=== PATIENT | male | born 1965 | race Caucasian/White ===

== ENCOUNTER 2016-12-24 12:22 | Emergency (ER) | payer BC ==
[2016-12-24 12:26] VITALS: BP 128/70; PULSE 74; RESP 18; TEMP 97.6
[2016-12-24] MEDS ORDERED: PROPARACAINE 0.5% OPHTH DROPS 15 ML BTL LEFT EYE STA (12:41)
[2016-12-24] MEDS ORDERED: TOBRAMYCIN 0.3% OPHTH DROPS 5 ML BTL LEFT EYE STA (12:57)
[2016-12-24] MEDS ORDERED: TOBRAMYCIN 0.3% OPHTH DROPS 5 ML BTL RIGHT EYE STA (12:57)
--- NOTE | 2016-12-24 12:59 | ED ---
Eye Problem HPI - General Chief complaint: Eye Problems Stated complaint: FB in Eye-Sent by Five minutes Time Seen by Provider: 12/24/16 12:40 Source: patient, RN notes reviewed Mode of arrival: ambulatory Limitations: no limitations - History of Present Illness Initial comments: 51-year-old male presents emergency department tingling foreign-body left eye. 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 Patient states her symptoms resolved though he still felt that there was a foreign body. Patient's tetanus is up-to-date 4 years ago. Patient denies any blurred vision he states he does have some sensitivity. - Related Data Home Medications Medication Instructions Recorded Confirmed Aspirin 81 mg PO DAILY 09/16/13 12/24/16 Atorvastatin [Lipitor] 80 mg PO HS 09/16/13 12/24/16 Lisinopril [Zestril] 5 mg PO DAILY 09/16/13 12/24/16 Metoprolol Tartrate [Lopressor] 25 mg PO BID 09/16/13 12/24/16 Nitroglycerin Sl Tabs [Nitrostat] 0.4 mg SL Q5M PRN 09/16/13 12/24/16 Omeprazole 20 mg PO BID 12/24/16 12/24/16 Previous Rx's Medication Instructions Recorded Tobramycin 0.3% Ophth Oint [Tobrex 1 applic LEFT EYE TID #3.5 gm 12/24/16 0.3% Ophth Oint] Allergies Allergy/AdvReac Type Severity Reaction Status Date / Time codeine AdvReac anxious Verified 12/24/16 12:39 Review of Systems ROS Statement: Those systems with pertinent positive or pertinent negative responses have been documented in the HPI. ROS Other: All systems not noted in ROS Statement are negative. Past Medical History Past Medical History: Chest Pain / Angina, Fibromyalgia, GERD/Reflux, Hyperlipidemia, Hypertension, Myocardial Infarction ([place]), Osteoarthritis (OA), Sleep Apnea/CPAP/BIPAP Additional Past Medical History / Comment(s): SOB w/activity Last Myocardial Infarction Date:: august 2013 History of Any Multi-Drug Resistant Organisms: None Reported Past Surgical History: Heart Catheterization With Stent Additional Past Surgical History / Comment(s): heart stent x5 Past Anesthesia/Blood Transfusion Reactions: No Reported Reaction Date of Last Stent Placement:: Jan 2013 Past Psychological History: No Psychological Hx Reported Smoking Status: Current some day smoker Past Alcohol Use History: Daily Past Drug Use History: None Reported - Past Family History Mother Family Medical History: No Reported History General Exam Limitations: no limitations General appearance: alert, in no apparent distress Head exam: Present: atraumatic, normocephalic, normal inspection Eye exam: Present: PERRL, EOMI, other (Foreign body noted to the left eyes central region 2 drops of proparacaine were used to anesthetize the eye sterile Q-tip was used to remove the foreign body dye and foster lamp was used to evaluate that I will shows a defect where the foreign-body was. There is no rust ring). Absent: normal appearance, scleral icterus, conjunctival injection , periorbital swelling ENT exam: Present: normal exam, normal oropharynx, mucous membranes moist, TM's normal bilaterally, normal external ear exam Neck exam: Present: normal inspection, full ROM. Absent: tenderness, meningismus, lymphadenopathy Respiratory exam: Present: normal lung sounds bilaterally. Absent: respiratory distress, wheezes, rales, rhonchi, stridor Cardiovascular Exam: Present: regular rate, normal rhythm, normal heart sounds. Absent: systolic murmur, diastolic murmur, rubs, gallop, clicks Course Vital Signs 12/24/16 12:23 Temperature 97.6 F Pulse Rate 74 Respiratory 18 Rate Blood Pressure 128/70 O2 Sat by Pulse 99 Oximetry Medical Decision Making - Medical Decision Making 51-year-old male present emergency from for foreign body left eye this was removed with no comp patients. Patient will be followed up with ophthalmology patient was started on Tobrex eyedrops return parameters were discussed. Disposition Clinical Impression: FB eye Disposition: HOME SELF-CARE Condition: Stable Instructions: Eye Foreign Body (ED) Additional Instructions: Please return to the Emergency Department if symptoms worsen or any other concerns. Prescriptions: Tobramycin 0.3% Ophth Oint [Tobrex 0.3% Ophth Oint] 1 applic LEFT EYE TID #3.5 gm Referrals: Cristobal Corona DO [Primary Care Provider] - 1-2 days Clement Krause MD [STAFF PHYSICIAN] - 1-2 days Time of Disposition: 12:59
--- NOTE | 2016-12-26 06:33 | CDI ---
Documentation Clarification OP Dear Mor Coelho PA-C Please do addendum to ED report that provides Need EYE Foreign Body Removal Location. Thank you, Trudi Fang Couture Dressmaker If you have any questions, please contact Desktop Support Engineer at [phone] [facility]
== END 2016-12-24 13:22 | disposition home or self-care (01) ==
LOC: EC 12:22
DX: T15.92XA Foreign body on external eye, part unspecified, left eye, initial encounter (principal); I10 Essential (primary) hypertension; I25.2 Old myocardial infarction; E78.5 Hyperlipidemia, unspecified; F17.200 Nicotine dependence, unspecified, uncomplicated; Z95.5 Presence of coronary angioplasty implant and graft; Z88.5 Allergy status to narcotic agent; Z79.82 Long term (current) use of aspirin; Z79.899 Other long term (current) drug therapy; W20.8XXA Other cause of strike by thrown, projected or falling object, initial encounter
CPT/HCPCS: 65205; 99283

== ENCOUNTER 2019-04-02 17:48 | Inpatient (IN) | payer BC ==
[2019-04-02] MEDS ORDERED: HEPARIN SODIUM,PORCINE 5,000 UNIT/ML 1 ML VIAL IV STA (17:55)
[2019-04-02] MEDS ORDERED: ATORVASTATIN 80 MG TAB PO STA (17:55)
[2019-04-02] MEDS ORDERED: IV FLUID CONTINUATION 950 ML IV ONE (18:02)
[2019-04-02 18:06] LABS: HCT 48.2 % (39.0-53.0); HGB 16.1 gm/dL (13.0-17.5); MCH 31.7 pg (25.0-35.0); MCHC 33.5 g/dL (31.0-37.0); MCV 94.8 fL (80.0-100.0); Mean Platelet Volume 6.8; Platelet Count 305 k/uL (150-450); RBC 5.08 m/uL (4.30-5.90); RDW 12.6 % (11.5-15.5); WBC 9.1 k/uL (3.8-10.6)
[2019-04-02] MEDS ORDERED: MIDAZOLAM 2 MG/2 ML VIAL IV ONE ×2 (18:10→18:40)
[2019-04-02] MEDS ORDERED: LIDOCAINE 1% INJ 10MG/ML (20 ML MDV) SQ ONE ×2 (18:11→18:12)
[2019-04-02 18:15] LABS: ALT 42 U/L (4-49); AST 45 U/L (17-59); African American GFR (CKD) >90 (>60 ml/min/1.73 sqM); Albumin 5.1 g/dL (3.5-5.0); Alkaline Phosphatase 113 U/L (38-126); Anion Gap 10 mmol/L; Blood Urea Nitrogen 13 mg/dL (9-20); Calcium 10.2 mg/dL (8.4-10.2); Carbon Dioxide 24 mmol/L (22-30); Chloride 103 mmol/L (98-107); Glucose 114 mg/dL (74-99); INR 0.9 (<1.2); Non-African American GFR(CKD) >90 (>60 ml/min/1.73 sqM); Partial Thromboplastin Time 24.4 sec (22.0-30.0); Potassium 4.5 mmol/L (3.5-5.1); Prothrombin Time 9.6 sec (9.0-12.0); Sodium 137 mmol/L (137-145); Total Bilirubin 0.5 mg/dL (0.2-1.3); Total Protein 8.4 g/dL (6.3-8.2)
[2019-04-02] MEDS ORDERED: VERAPAMIL SYRINGE (5 MG/10 ML) INTRAARTER ONE (18:15)
--- NOTE | 2019-04-02 18:15 | ED ---
Chest Pain HPI - General Chief Complaint: Chest Pain Stated Complaint: STEMI Time Seen by Provider: 04/02/19 17:48 Source: patient, EMS, RN notes reviewed, old records reviewed Mode of arrival: EMS Limitations: no limitations - History of Present Illness Initial Comments: This is a 53-year-old male with a history of heart disease previous cardiac cath and stents and who is still a smoker who presents by EMS with complaints of sternal chest pain that was about 6 or 7/10 in severity this started around 2 PM today. It persisted and the patient called EMS when his pain did not get better with antacids. He does state he's been having heartburn like pain for the past week off. He denies any nausea vomiting fevers chills sweats shortness of breath or other symptoms with the pain. Per paramedics he did appear to have an ST elevation in the inferior leads. He did maintain his pressure. He was given 325 mg of aspirin in route to. He denies any other complaints at this time MD Complaint: chest pain - Related Data Home Medications Medication Instructions Recorded Confirmed Aspirin 81 mg PO DAILY 09/16/13 12/24/16 Atorvastatin [Lipitor] 80 mg PO HS 09/16/13 12/24/16 Lisinopril [Zestril] 5 mg PO DAILY 09/16/13 12/24/16 Metoprolol Tartrate [Lopressor] 25 mg PO BID 09/16/13 12/24/16 Nitroglycerin Sl Tabs [Nitrostat] 0.4 mg SL Q5M PRN 09/16/13 12/24/16 Omeprazole 20 mg PO BID 12/24/16 12/24/16 Previous Rx's Medication Instructions Recorded Tobramycin 0.3% Ophth Oint [Tobrex 1 applic LEFT EYE TID #3.5 gm 12/24/16 0.3% Ophth Oint] Allergies Allergy/AdvReac Type Severity Reaction Status Date / Time codeine AdvReac anxious Verified 04/02/19 17:53 Review of Systems ROS Statement: Those systems with pertinent positive or pertinent negative responses have been documented in the HPI. ROS Other: All systems not noted in ROS Statement are negative. EKG Findings - EKG Results: EKG: interpreted by MAYA, sinus rhythm (EKG showed ST elevations in leads 23 aVF with reciprocal changes in aVL. The rate was 79. Interval 166 QRS 102 QT since QTC 364/417 possible left atrial enlargement had a right ventricular involvement) Past Medical History Past Medical History: Chest Pain / Angina, Fibromyalgia, GERD/Reflux, Hyperlipid emia, Hypertension, Myocardial Infarction ([place]), Osteoarthritis (OA), Sleep Apnea/CPAP/BIPAP Additional Past Medical History / Comment(s): SOB w/activity Last Myocardial Infarction Date:: august 2013 History of Any Multi-Drug Resistant Organisms: None Reported Past Surgical History: Heart Catheterization With Stent Additional Past Surgical History / Comment(s): heart stent x5 Past Anesthesia/Blood Transfusion Reactions: No Reported Reaction Date of Last Stent Placement:: Jan 2013 Past Psychological History: No Psychological Hx Reported Smoking Status: Current some day smoker Past Alcohol Use History: Daily Past Drug Use History: None Reported - Past Family History Mother Family Medical History: No Reported History General Exam - General Exam Comments Initial Comments: This is a well-developed well-nourished awake alert oriented 3 male Limitations: no limitations General appearance: alert, in no apparent distress Head exam: Present: atraumatic, normocephalic, normal inspection Eye exam: Present: normal appearance, PERRL, EOMI. Absent: scleral icterus, conjunctival injection, periorbital swelling ENT exam: Present: normal exam, mucous membranes moist Neck exam: Present: normal inspection. Absent: tenderness, meningismus, lymphadenopathy Respiratory exam: Present: normal lung sounds bilaterally. Absent: respiratory distress, wheezes, rales, rhonchi, stridor Cardiovascular Exam: Present: regular rate, normal rhythm, normal heart sounds. Absent: systolic murmur, diastolic murmur, rubs, gallop, clicks GI/Abdominal exam: Present: soft, normal bowel sounds. Absent: distended, tenderness, guarding, rebound, rigid Extremities exam: Present: normal inspection, full ROM, normal capillary refill. Absent: tenderness, pedal edema, joint swelling, calf tenderness Back exam: Present: normal inspection Neurological exam: Present: alert, oriented X3, CN II-XII intact Psychiatric exam: Present: normal affect, normal mood Skin exam: Present: warm, dry, intact, normal color. 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 He does have a prior history of RCA pathology per REPORT from 2013. Dr. Salgado was present in the emergency department. Patient was taken to the Computer Lab Assistant for evaluation and possible intervention. Dr. Sher was notified if she is covering Dr. Corona. Patient pain had improved without use of nitroglycerin EKG changes persisted this was compared with EKG done by EMS personnel. Is taken to the Computer Lab Assistant. Disposition Clinical Impression: ST elevation myocardial infarction (STEMI), Chest pain Disposition: ADMITTED IP TO THIS HOSP Condition: Critical Referrals: Cristobal Corona DO [Primary Care Provider] - 1-2 days
[2019-04-02] MEDS ORDERED: HYDROmorphone 1 MG/ML 1 ML SYRINGE ONE (18:17)
[2019-04-02] MEDS ORDERED: PRASUGREL 10 MG TAB ONE (18:18)
[2019-04-02] MEDS ORDERED: BIVALIRUDIN BOLUS 250 MG/50 ML IV ONE ×2 (18:18)
[2019-04-02] MEDS ORDERED: HYDROmorphone 1 MG/ML 1 ML SYRINGE IVP ONE (18:19)
[2019-04-02] MEDS ORDERED: PRASUGREL 10 MG TAB PO ONE (18:26)
[2019-04-02] MEDS ORDERED: BIVALIRUDIN 250 MG in SODIUM CHLORIDE 0.9% 39.5 ML IV ONE (18:30)
[2019-04-02] MEDS: ATROPINE SULFATE 0.1 MG/ML 10ML SYRINGE IV ONE ×2 (18:37→18:47)
[2019-04-02 18:38] LABS: Creatine Kinase MB 3.8 ng/mL (0.0-2.4)
[2019-04-02 18:42] LABS: Troponin I 0.079 ng/mL (0.000-0.034)
[2019-04-02] MEDS ORDERED: niCARdipine 25 MG/10 ML VIAL ONE (18:43)
[2019-04-02] MEDS ORDERED: IOPAMIDOL-370 125ML BTL INJ ONE ×2 (18:47→19:24)
[2019-04-02] MEDS ORDERED: niCARdipine Syringe (1,000 mcg/10 mL) INTRACORON ONE (19:22)
[2019-04-02] MEDS ORDERED: NITROGLYCERIN 1000MCG/10ML SYRINGE INTRACORON ONE (19:22)
[2019-04-02] MEDS ORDERED: IV FLUID CONTINUATION 1,000 ML IV ONE (19:25)
[2019-04-02] MEDS ORDERED: ZOLPIDEM 5 MG TAB PO PRN (19:39)
[2019-04-02] MEDS ORDERED: MAG HYDROX/AL HYDROX/SIMETH 30 ML CUP PO PRN (19:39)
[2019-04-02] MEDS ORDERED: RX INFO: IV CONTRAST WAS GIVEN 1 EACH MISC MISCELLANE PRN (19:39)
[2019-04-02] MEDS ORDERED: ATROPINE SULFATE 0.1 MG/ML 10ML SYRINGE IV PRN (19:39)
[2019-04-02] MEDS ORDERED: NITROGLYCERIN SL TABS 0.4 MG TAB SUBLINGUAL PRN (19:39)
--- NOTE | 2019-04-02 19:44 | P.CRDCN ---
History of Present Illness Consult date: 04/02/19 Chief complaint: Chest discomfort History of present illness: This is a very pleasant 53-year-old gentleman who sees Dr. Mckenzie on regular basis with a past medical history significant for coronary artery disease and prior stenting of the right coronary artery and left circumflex coronary artery, hypertension, dyslipidemia, who unfortunately continues to smoke, was brought to the emergency room earlier today by ambulance and was diagnosed with acute inferior ST patient myocardial infarction. The patient was in his usual state of health until earlier today when he was at home and started experiencing discomfort in the mid of the chest, as a pressure on the chest, with radiation to both arms, as well as radiation to the back. Ambulance was called and the patient was found to be an acute inferior ST patient myocardial infarction. Sub sequently he underwent an emergent heart catheterization and was found to have occluded right coronary artery in the distal portion. He underwent successful percutaneous coronary intervention on the right coronary artery with an excellent angiographic results and SMITH 3 flow by the end. He was chest pain- free. During the procedure he was a bradycardic and also hypotensive with systolic blood pressure around 80-90 mmHg. The patient tolerated the procedure very well. The procedure was performed from right radial approach. He is going to be admitted to the intensive care unit. I will continue dual antiplatelet therapy along with high intensity statin. I would hold any beta renetta or KATJA inhibitor at this point in view of the marginal blood pressure. An echocardiogram is in process to be done. Past Medical History Past Medical History: Chest Pain / Angina, Fibromyalgia, GERD/Reflux, Hyperlipidemia, Hypertension, Myocardial Infarction ([place]), Osteoarthritis (OA), Sleep Apnea/CPAP/BIPAP Additional Past Medical History / Comment(s): SOB w/activity Last Myocardial Infarction Date:: august 2013 History of Any Multi-Drug Resistant Organisms: None Reported Past Surgical History: Heart Catheterization With Stent Additional Past Surgical History / Comment(s): heart stent x5 Past Anesthesia/Blood Transfusion Reactions: No Reported Reaction Date of Last Stent Placement:: Jan 2013 Past Psychological History: No Psychological Hx Reported Smoking Status: Current some day smoker Past Alcohol Use History: Daily Past Drug Use History: None Reported - Past Family History Mother Family Medical History: No Reported History Medications and Allergies Home Medications Medication Instructions Recorded Confirmed Type Aspirin 81 mg PO DAILY 09/16/13 04/02/19 History Lisinopril [Zestril] 5 mg PO DAILY 09/16/13 04/02/19 History Omeprazole 20 mg PO DAILY 12/24/16 04/02/19 History Ibuprofen [Motrin Ib] 800 mg PO Q8H PRN 04/02/19 04/02/19 History Metoprolol Tartrate [Lopressor] 50 mg PO BID 04/02/19 04/02/19 History Allergies Allergy/AdvReac Type Severity Reaction Status Date / Time codeine AdvReac anxious Verified 04/02/19 18:44 Physical Exam Vitals: Vital Signs Temp Pulse Resp BP Pulse Ox 04/02/19 17:50 98.2 F 100 20 192/102 97 Intake and Output 04/02/19 04/02/19 04/02/19 06:59 14:59 22:59 Intake Total 1139.5 Balance 1139.5 Intake: IV 1139.5 Other: Weight 72.575 kg - Constitutional General appearance: no acute distress - Respiratory Respiratory: bilateral: CTA - Cardiovascular Rhythm: regular Heart sounds: normal: S1, S2 Results 04/02/19 17:52 04/02/19 17:52 Cardiac Enzymes 04/02/19 04/02/19 Range/Units 17:52 17:52 AST 45 (17-59) U/L CK-MB (CK-2) 3.8 H (0.0-2.4) ng/mL Troponin I 0.079 H* (0.000-0.034) ng/mL Coagulation 04/02/19 Range/Units 17:52 PT 9.6 (9.0-12.0) sec APTT 24.4 (22.0-30.0) sec CBC 04/02/19 Range/Units 17:52 WBC 9.1 (3.8-10.6) k/uL RBC 5.08 (4.30-5.90) m/uL Hgb 16.1 (13.0-17.5) gm/dL Hct 48.2 (39.0-53.0) % Plt Count 305 (150-450) k/uL Comprehensive Metabolic Panel 04/02/19 Range/Units 17:52 Sodium 137 (137-145) mmol/L Potassium 4.5 (3.5-5.1) mmol/L Chloride 103 (98-107) mmol/L Carbon Dioxide 24 (22-30) mmol/L BUN 13 (9-20) mg/dL Creatinine 0.89 (0.66-1.25) mg/dL Glucose 114 H (74-99) mg/dL Calcium 10.2 (8.4-10.2) mg/dL AST 45 (17-59) U/L ALT 42 (4-49) U/L Alkaline Phosphatase 113 (38-126) U/L Total Protein 8.4 H (6.3-8.2) g/dL Albumin 5.1 H (3.5-5.0) g/dL Current Medications Generic Name Dose Route Start Last Admin Trade Name Freq PRN Reason Stop Dose Admin Aspirin 81 mg 04/03/19 09:00 Aspirin PO DAILY DEJUAN Non-Formulary Medication 20 mg 04/03/19 09:00 Omeprazole [Omeprazole] PO DAILY DEJUAN Intake and Output 04/02/19 04/02/19 04/02/19 06:59 14:59 22:59 Intake Total 1139.5 Balance 1139.5 Intake: IV 1139.5 Other: Weight 72.575 kg Patient Weight 04/03/19 06:59 Weight 72.575 kg 04/02/19 17:52 04/02/19 17:52 Assessment and Plan Assessment: Assessment #[address] elevation myocardial infarction #2 status post PCI of the distal RCA #3 known coronary artery disease and prior stenting of the mid RCA and LCx #4 hypertension #5 dyslipidemia #6 significant history of smoking Plan #1 dual antiplatelet therapy along with high intensity statin #2 hold the beta renetta and KATJA inhibitor in view of the bradycardia and hypotension #3 obtain an echocardiogram was Doppler #4 ICU admission #5 follow-up with the patient Thank you for allowing us participate in his care
[2019-04-02] MEDS ORDERED: SODIUM CHLORIDE 0.9% 1,000 ML IV SCH (19:45)
[2019-04-02] MEDS ORDERED: METOCLOPRAMIDE 5 MG/ML 2 ML VIAL IVP PRN (19:47)
[2019-04-02] MEDS ORDERED: ACETAMINOPHEN TAB 500 MG TAB PO PRN (19:47)
[2019-04-02] MEDS ORDERED: ALPRAZolam 0.25 MG TAB PO PRN (19:47)
[2019-04-02 19:55] LABS: Glucose,Whole Blood 95 mg/dL (75-99)
[2019-04-02] MEDS ORDERED: NALOXONE 0.4 MG/ML 1 ML VIAL IV PRN (20:04)
[2019-04-02] MEDS ORDERED: TEMAZEPAM 15 MG CAP PO PRN (21:56)
[2019-04-02] MEDS ORDERED: LORazepam 1 MG TAB PO PRN (21:56)
[2019-04-03] MEDS: NICOTINE 14MG/24HR PATCH TRANSDERM SCH ×2 (00:51→10:08)
[2019-04-03 04:59] LABS: Basophils % (A) 0 %; Eosinophils # (A) 0.1 k/uL (0-0.7); Eosinophils % (A) 1 %; HGB 13.2 gm/dL (13.0-17.5); Lymphocytes # (A) 1.7 k/uL (1.0-4.8); Lymphocytes % (A) 19 %; MCH 36.2 pg (25.0-35.0); MCHC 37.7 g/dL (31.0-37.0); MCV 96.2 fL (80.0-100.0); Monocytes # (A) 0.5 k/uL (0-1.0); Monocytes % (A) 6 %; Neutrophils # (A) 6.1 k/uL (1.3-7.7); Neutrophils % (A) 70 %; Platelet Count 254 k/uL (150-450); RBC 3.64 m/uL (4.30-5.90); RDW 12.7 % (11.5-15.5); WBC 8.6 k/uL (3.8-10.6)
[2019-04-03 05:12] LABS: African American GFR (CKD) >90 (>60 ml/min/1.73 sqM); Anion Gap 3 mmol/L; Blood Urea Nitrogen 12 mg/dL (9-20); Calcium 9.3 mg/dL (8.4-10.2); Carbon Dioxide 25 mmol/L (22-30); Chloride 109 mmol/L (98-107); Cholesterol 243 mg/dL (<200); Glucose 93 mg/dL (74-99); HDL Cholesterol 40 mg/dL (40-60); LDL Cholesterol,Calculated 170 mg/dL (0-99); Magnesium 1.9 mg/dL (1.6-2.3); Non-African American GFR(CKD) >90 (>60 ml/min/1.73 sqM); Potassium 3.9 mmol/L (3.5-5.1); Sodium 137 mmol/L (137-145); Triglycerides 165 mg/dL (<150)
[2019-04-03] MEDS ORDERED: Potassium Replacement Protocol 1 EACH MISC MISCELLANE PRN (05:27)
[2019-04-03] MEDS ORDERED: POTASSIUM CHLORIDE ER 20 MEQ TAB.ER PO SCH (06:00)
[2019-04-03] MEDS: PANTOPRAZOLE 40 MG TABLET PO SCH (06:32)
--- NOTE | 2019-04-03 08:27 | HP ---
HISTORY AND PHYSICAL I am covering for Dr. Cristobal Corona. DATE OF SERVICE: 04/02/2019. CHIEF COMPLAINT: Chest pain. HISTORY OF PRESENT ILLNESS: This 53-year-old gentleman with a past medical history of multiple medical problems including history of chest pains, fibromyalgia, hypertension, hyperlipidemia, history of myocardial infarction, history of CAD, stent, being followed by Dr. Cristobal Corona in the outpatient setting, was complaining of chest pains on and off for the last several days, but today the patient has significant chest pain about 7/10 in intensity in the anterior part of the chest. Around 2 p.m. the patient called EMS. The pain did not get better with antacids and the patient came to [facility] and was noted to have ST elevation hyperacute changes in the inferior leads. The troponins were elevated up to 0.09. Patient underwent cardiac cath and stenting of the RCA by Dr. Alaniz. The patient closely monitored in ICU at this time. There is no history of fever, rigors. No history of headache, loss of consciousness or seizures at this time. PAST MEDICAL HISTORY: History of fibromyalgia, GERD, hypertension, hyperlipidemia, history of myocardial infarction, history of DJD, sleep apnea, history of CAD, stent. MEDICATIONS: Mediations prior to admission home medications are: 1. Lisinopril 5 mg p.o. daily. 2. Motrin 800 mg q.8 p.r.n. 3. Omeprazole 20 mg p.o. daily. 4. Lopressor 50 mg p.o. b.i.d. 5. Aspirin 81 mg p.o. daily. ALLERGIES: Allergies are CODEINE. FAMILY HISTORY: No history of heart disease or strokes in the family. SOCIAL HISTORY: History of smoking, continued ongoing. Occasional alcohol intake. REVIEW OF SYSTEMS: ENT: No diminished hearing or diminished vision. CARDIOVASCULAR SYSTEM: As mentioned earlier. RESPIRATORY SYSTEM: As mentioned earlier. GI: No nausea. : No dysuria. NERVOUS SYSTEM: No numbness or weakness. ALLERGY/IMMUNOLOGY: No asthma or hayfever. MUSCULOSKELETAL: As mentioned earlier. HEMATOLOGY/ONCOLOGY: No history of anemia. ENDOCRINE: No history of diabetes or hypothyroidism. CONSTITUTIONAL: As mentioned earlier. DERMATOLOGY: Negative. RHEUMATOLOGY: Negative. PSYCHIATRY: As mentioned earlier. PHYSICAL EXAMINATION: The patient is alert and oriented x3. Pulse is 100, blood pressure 192/102, respiration 20, temperature 98.2, pulse ox 97% on room air. HEENT: Conjunctivae normal. Oral mucosa moist. NECK: No jugular venous distention. No carotid bruit. No lymph node enlargement. CARDIOVASCULAR: S1, S2, muffled. No S3, no S4. RESPIRATORY: Breath sounds diminished at the bases. No rhonchi, no crackles. ABDOMEN: Soft, nontender. No mass palpable. LEGS: No edema, no swelling. NERVOUS SYSTEM: Higher function as mentioned earlier. Moves all 4 limbs. No focal motor or sensory deficits. LYMPHATICS: No lymphadenopathy of the neck, axillae or groin. SKIN: No ulcer, rash or bleeding. JOINTS: No active deforming arthropathy. LABS: CBC within normal limits. Glucose 114 and creatine kinase 943 and troponin 0.07. Albumin 5.1. ASSESSMENT: 1. Acute hyperacute ST-segment elevation inferior myocardial infarction, status post cardiac catheterization and stenting of the right coronary artery. 2. History of coronary artery disease, stent. 3. Fibromyalgia. 4. Gastroesophageal reflux disease. 5. Hypertension. 6. Hyperlipidemia. 7. History of degenerative joint disease. 8. History of sleep apnea. 9. History of continued ongoing nicotine dependence. RECOMMENDATIONS AND DISCUSSION: This 53-year-old gentleman who presented with multiple medical problems, at this time I recommend to continue current medications, continue with symptomatic treatment. Otherwise at this time I would recommend dual antiplatelet agents and beta blockers per Cardiology and DVT prophylaxis. Otherwise, smoking cessation advised, Habitrol patch. Ativan p.r.n. Symptomatic treatment. Guarded prognosis because of multiple complex medical issues. Further recommendations to follow. A copy of dictation forwarded to Dr. Cristobal Corona who is the primary physician. MMODL / IJN: [id number] /
--- NOTE | 2019-04-03 09:04 | XR ---
EXAMINATION TYPE: XR chest 1V portable DATE OF EXAM: 04/03/2019 COMPARISON: 09/16/2013 HISTORY: Shortness of breath TECHNIQUE: Single frontal view of the chest is obtained. FINDINGS: There is no focal air space opacity, pleural effusion, or pneumothorax seen. The cardiac silhouette size is within normal limits. The osseous structures are intact. Elevation the left arely diaphragm. Heart size normal. No overt failure. IMPRESSION: No acute process.
--- NOTE | 2019-04-03 09:21 | CC ---
CARDIAC CATHETERIZATION REPORT DATE OF SERVICE: 04/02/2019 PERFORMING PHYSICIAN: Greg Alaniz MD. PROCEDURE PERFORMED: 1. Selective right and left coronary angiogram. 2. Aspiration thrombectomy from the right coronary artery. 3. Successful stenting of the distal right coronary artery using 2.0 x 18 mm Madi drug- eluting stent which was post-dilated using 3 mm balloon with an excellent angiographic results and reduction of stenosis from 100% to 0%. 4. Balloon angioplasty of the right coronary artery in the midportion. 5. Left heart catheterization. INDICATION: This is a 53-year-old gentleman with history of coronary artery disease and prior stenting of the RCA who unfortunately continues prior stenting of the RCA and LCX who unfortunately continues to smoke. He experienced chest discomfort earlier today and ambulance was called where he was found to be in acute inferior ST-elevation myocardial infarction. Because of that, an emergent heart catheterization was advised. APPROACH: Right radial artery. COMPLICATION: None. Door to balloon is 45 minutes. Sedation duration is 76 minutes. PROCEDURE DESCRIPTION: After obtaining an informed consent, the patient was brought to the cardiac laborer high density press. The right radial artery was cannulated using micropuncture technique and a micropuncture wire passed easily, then I placed a 6-Khmer sheath. After that, I gave the patient 2 mg of verapamil IA. Anticoagulation was initiated using Angiomax with bolus and drip. Initially, I attempted engaging the right coronary artery using JR4 catheter. I was unable to inject the engaged to engage the right coronary artery. I attempted engaging the right using a Ezequiel right catheter. With that, I was sub selective in the right coronary artery, but I was able to see the takeoff of the right coronary artery. I went back and engaged I engaged the right coronary artery using JR4 again. I did not have the guide seated well in the ostial right coronary artery, but enough to get the wire down to the distal right coronary artery and cross the acute total occlusion. Subsequently I did aspiration thrombectomy from the right coronary artery. After that I advanced 2.5 x 12 mm balloon to the distal right coronary artery and I did PTCA ballooning of the right coronary artery in the distal portion. After that I attempted advancing 3.5 x 23 mm Xience JAMES but the stent will not cross the mid right coronary artery. I did not have good backup support from the guide and because of that I decided to go ahead and change my guide. I was able to engage the right coronary artery with good backup support and good guide Donovan Bronson using with good wide guide seating using an AL1 guide. I did wire the right coronary artery again using a whisper wire which was Whisper J. Attempting advancing the stent, which was 3.5 x 23 mm Xience JAMES was unsuccessful and the stent will not make the turn in the catheter will not cross the mid right coronary artery which was stented from before. That portion of the right coronary artery was also slightly tortuous. I did double wire the right coronary artery using a run-through wire. In spite of that I was unable to cross the RCA on either wire. At that point, I decided to do balloon angioplasty of the mid right coronary artery. Assuming there was some area of stenosis was not well visualized angiographically. I did balloon angioplasty of the mid RCA using 3.5 x 15 mm NC balloon. The balloon was inflated under 18 atmospheres at the time in the mid RCA. Again I tried to advance the 3.5 x 8 x 23 mm Xience and I was unable on either wire. At that point, I decided to go ahead and use an madi stent. I was able to get the madi stent to the distal right coronary artery and that madi was 3 0 x 32.2 0.0 x 18 mm stent. The stent was positioned under fluoroscopy guidance and deployed under 22 atmospheres for 20 seconds. I post-dilated the stent using 3.0 mm balloon which was noncompliant balloon which was inflated twice under 20 atmospheres as well. The following angiogram showed excellent angiographic results. The mid right coronary artery was also looking good angiographically. At that point, I decided to stop. The procedure was completed at that point without any complication. SELECTIVE CORONARY ANGIOGRAM: 1. The left main is angiographically normal, it bifurcates into LCX and LAD. 2. The LCX is a large caliber vessel it is a nondominant vessel. The proximal circumflex appeared to be normal and gives rise into OM1 which appeared to be stented and the stent is patent. The circumflex continued after that as a small to medium caliber vessel in the AV groove. 3. The LAD, The proximal LAD appeared to be angiographically normal. It gives rise into a large diagonal branch which seems to be normal. The mid and distal LAD appeared to be angiographically normal. 4. The right coronary artery is stented in the midportion and mid to distal portion. The distally appeared to be occluded. HEMODYNAMICS: The LVEDP was 12-14 mmHg without significant gradient across aortic valve. CONCLUSION: 1. Acute inferior ST-elevation myocardial infarction. 2. Acute total occlusion of the distal right coronary artery, which seems to be de Tayler occlusion. 3. Patent stent in the left circumflex coronary artery. 4. Normal left anterior descending artery system. 5. Successful stenting of the distal right coronary artery: 6. Successful balloon angioplasty of the mid right coronary artery. 7. Normal left ventricular end-diastolic pressure. POSTPROCEDURE MANAGEMENT: 1. Dual anti-platelet therapy. 2. Risk factors modifications. 3. Follow up with the patient. MMODL / IJN: [id number] /
[2019-04-03] MEDS: ASPIRIN 81 MG PO SCH (09:51)
--- NOTE | 2019-04-03 10:00 | ECHOF ---
Referral Reason:CP MEASUREMENTS -------- HEIGHT: 167.6 cm WEIGHT: 73.9 kg BP: 117/70 RVIDd: 3.6 cm (< 3.3) IVSd: 1.3 cm (0.6 - 1.1) LVIDd: 4.1 cm (3.9 - 5.3) LVPWd: 1.3 cm (0.6 - 1.1) IVSs: 1.9 cm LVIDs: 3.1 cm LVPWs: 1.7 cm LA Diam: 3.3 cm (2.7 - 3.8) LAESV Index (A-L): 16.86 ml/m Ao Diam: 3.1 cm (2.0 - 3.7) AV Cusp: 1.7 cm (1.5 - 2.6) MV EXCURSION: 19.436 mm (> 18.000) MV EF SLOPE: 88 mm/s (70 - 150) EPSS: 1.2 cm MV E Stu: 0.76 m/s MV DecT: 223 ms MV A Stu: 0.59 m/s MV E/A Ratio: 1.27 FINDINGS -------- Sinus rhythm. This was a technically adequate study. The left ventricular size is normal. There is mild concentric left ventricular hypertrophy. Overa ll left ventricular systolic function is mildly impaired with, an EF between 45 - 50 %. Basal infer ior LV wall motion is hypokinetic. Basal inferoseptal LV wall motion is hypokinetic. Mid inferi or LV wall motion is hypokinetic. The right ventricle is mildly enlarged. Normal LA size by volume 22+/-6 ml/m2. The right atrial size is normal. Interatrial and interventricular septum intact. The aortic valve is trileaflet, and appears structurally normal. No aortic stenosis or regurgitation. The mitral valve is normal. Mild mitral regurgitation is present. The tricuspid valve appears structurally normal. Mild tricuspid regurgitation present. The pulmonic valve was not well visualized. There is no pulmonic regurgitation present. The aortic root size is normal. Normal inferior vena cava with normal inspiratory collapse consistent with estimated right atrial pre ssure of 5 mmHg. There is no pericardial effusion. CONCLUSIONS -------- 1. Sinus rhythm. 2. The left ventricular size is normal. 3. There is mild concentric left ventricular hypertrophy. 4. Overall left ventricular systolic function is mildly impaired with, an EF between 45 - 50 %. 5. Basal inferior LV wall motion is hypokinetic. 6. Basal inferoseptal LV wall motion is hypokinetic. 7. Mid inferior LV wall motion is hypokinetic. 8. The right ventricle is mildly enlarged. 9. Normal LA size by volume 22+/-6 ml/m2. 10. The aortic valve is trileaflet, and appears structurally normal. No aortic stenosis or regurgitat ion. 11. Mild mitral regurgitation is present. 12. Mild tricuspid regurgitation present. 13. The pulmonic valve was not well visualized. 14. There is no pericardial effusion. LABORER [employer]ANT: Ginny Atkinson RDCS
--- NOTE | 2019-04-03 11:23 | P.PN ---
Subjective Progress Note Date: 04/03/19 This is a 53-year-old gentleman with history of ischemic heart disease with previous stent placement was admitted to the hospital with acute inferior wall OH and had stent placement to the distal RCA by Dr. Salgado. These stents in the LAD o and circumflex appear to be patent. Patient is feeling better. Denies any chest pain or shortness of breath. His chest x-ray appeared to be clear. Echo Cardigan showed hypokinesis of the inferior wall with ejection fraction about 45% to 50%. His lungs are clear. Heart is regular. No JVD. No peripheral edema. Only 1 troponin values available. Patient is stable. Patient is being transferred to telemetry unit and increase activity as tolerated. Possible discharge within 24-48 hours. Objective - Vital Signs Vital signs: Vital Signs Temp 98.4 F 04/03/19 09:00 Pulse 67 04/03/19 11:00 Resp 17 04/03/19 11:00 BP 117/74 04/03/19 09:00 Pulse Ox 96 04/03/19 08:00 Intake & Output 04/02/19 04/03/19 04/03/19 18:59 06:59 18:59 Intake Total 989.5 810 95 Output Total 375 1800 Balance 989.5 435 -1705 Weight 72.575 kg 74 kg Intake: IV 989.5 810 95 Sodium Chloride 0.9% 1, 660 95 000 ml @ 75 mls/hr IV . [id number] [facility] Rx#:[id number] Output: Urine 375 1800 - Exam GENERAL EXAM: Patient is alert and oriented and doesn't appear to be in any acute distress HEENT: Normocephalic. Normal reaction of pupils, equal size, normal range of extraocular motion. No erythema or exudates in the throat. NECK: No masses, no nuchal rigidity. CHEST: No chest wall deformity. LUNGS: Equal air entry with no crackles or wheeze. HEART: S1 and S2 normal with no audible mumurs or gallops. Regular rhythm, femorals equal on both sides.. ABDOMEN: No hepatosplenomegaly, normal bowel sounds, no guarding or rigidity. SKIN: No rashes CENTRAL NERVOUS SYSTEM: No focal deficits. EXTREMITIES: No cyanosis, clubbing or edema. The right radial artery: The puncture site is healing well. Pulses preserved - Labs CBC & Chem 7: 01/02/20 04:46 04/03/19 04:46 Labs: Abnormal Lab Results - Last 24 Hours (Table) 04/02/19 04/02/19 04/03/19 Range/Units 17:52 17:52 04:46 RBC 3.64 L (4.30-5.90) m/uL Hct 35.0 L (39.0-53.0) % MCH 36.2 H (25.0-35.0) pg MCHC 37.7 H (31.0-37.0) g/dL Chloride (98-107) mmol/L Glucose 114 H (74-99) mg/dL Total Creatine Kinase 943 H (55-170) U/L CK-MB (CK-2) 3.8 H (0.0-2.4) ng/mL Troponin I 0.079 H* (0.000-0.034) ng/mL Total Protein 8.4 H (6.3-8.2) g/dL Albumin 5.1 H (3.5-5.0) g/dL Triglycerides (<150) mg/dL Cholesterol (<200) mg/dL LDL Cholesterol, Calc (0-99) mg/dL 04/03/19 Range/Units 04:46 RBC (4.30-5.90) m/uL Hct (39.0-53.0) % MCH (25.0-35.0) pg MCHC (31.0-37.0) g/dL Chloride 109 H (98-107) mmol/L Glucose (74-99) mg/dL Total Creatine Kinase (55-170) U/L CK-MB (CK-2) (0.0-2.4) ng/mL Troponin I (0.000-0.034) ng/mL Total Protein (6.3-8.2) g/dL Albumin (3.5-5.0) g/dL Triglycerides 165 H (<150) mg/dL Cholesterol 243 H (<200) mg/dL LDL Cholesterol, Calc 170 H (0-99) mg/dL Assessment and Plan (1) ST elevation myocardial infarction (STEMI) Current Visit: Yes Status: Acute Code(s): I21.3 - ST ELEVATION (STEMI) M YOCARDIAL INFARCTION OF [facility] SITE SNOMED Code(s): 41279648 (2) CAD (coronary artery disease) Current Visit: No Status: Acute Code(s): I25.10 - ATHSCL HEART DISEASE OF [place] CORONARY ARTERY W/O ANG PCTRS SNOMED Code(s): 386408535 (3) HTN (hypertension) Current Visit: No Status: Acute Code(s): I10 - ESSENTIAL (PRIMARY) HYPERTENSION SNOMED Code(s): 05410048 (4) Hyperlipidemia Current Visit: No Status: Acute Code(s): E78.5 - HYPERLIPIDEMIA, UNSPECIFIED SNOMED Code(s): 56955824 (5) Nicotine dependence Current Visit: No Status: Acute Code(s): F17.200 - NICOTINE DEPENDENCE, UNSPECIFIED, UNCOMPLICATED SNOMED Code(s): 75916329 Plan: Patient is currently doing well. He is being transferred to telemetry unit. Increase activity as tolerated. Possible discharge within next 24-48 hours.
[2019-04-03 11:55] VITALS: BMI 26.3
[2019-04-03] MEDS: METOPROLOL TARTRATE 12.5 MG TAB PO SCH ×2 (14:34→21:05)
[2019-04-03] MEDS: LISINOPRIL 2.5 MG TAB PO SCH (14:34)
[2019-04-03] MEDS ORDERED: ATORVASTATIN 80 MG TAB PO SCH (21:00)
[2019-04-03] MEDS: PRASUGREL 10 MG TAB PO SCH (21:05)
--- NOTE | 2019-04-03 21:48 | PN ---
PROGRESS NOTE DATE OF SERVICE: 04/03/2019 I am covering for Dr. Corona. This 53-year-old gentleman who was admitted with acute ST-segment elevation myocardial infarction had cardiac catheterization and stenting by Dr. Alaniz yesterday. The patient also had a chest x-ray today which was personally reviewed by me and showed no acute abnormality, but however, the patient does have 2D echocardiogram which was read by read by Cardiology, shows ejection fraction about 45-50 percent and inferior wall hypokinesis also. No chest pain. No palpitations. PAST MEDICAL HISTORY: Reviewed. REVIEW OF SYSTEMS: Cardiovascular system: No angina or palpitations. Respiration: As mentioned earlier. GI: No nausea or vomiting. : No dysuria. CENTRAL NERVOUS SYSTEM: No focal deficits. CURRENT MEDICATIONS: Reviewed and include: 1. Tylenol 500 mg q.6h p.r.n. 2. Maalox. 3. Xanax. 4. Aspirin 81 mg. 5. Lipitor. 6. Atropine. 7. Zestril. 8. Ativan. 9. Lopressor. 10.Narcan. 11.Habitrol 14. 12.Protonix 40 mg daily. 13.Effient. 14.Restoril. 15.Ambien. PHYSICAL EXAMINATION: Patient is alert, oriented x3. Pulse 76, blood pressure 127/75, respirations 12, temperature 97.9, pulse ox 98% on room air. HEENT: Conjunctivae normal. NECK: No jugular venous distention. CARDIOVASCULAR: S1, S2 muffled. RESPIRATIONS: Breath sounds diminished in the bases. Bilateral scattered rhonchi and crackles. ABDOMEN: Soft, nontender. LEGS are no edema. No swelling. CENTRAL NERVOUS SYSTEM: No focal deficits. LABS: WBC 8.2, hemoglobin 13.2. Otherwise, sodium 137. Troponin 0.079 and triglycerides 165 and cholesterol 243 and LDL is 170. ASSESSMENT: 1. Acute hyperacute ST segment elevation inferior wall myocardial infarction status post cardiac catheterization and stenting of the RCA. 2. Congestive heart failure with chronic systolic dysfunction, ejection fraction 45-50 percent, possibly ischemic in nature. 3. History of coronary artery disease/stent. 4. Fibromyalgia. 5. Gastroesophageal reflux disease. 6. Hypertension. 7. Hyperlipidemia. 8. History of degenerative joint disease. 9. History of sleep apnea. 10.Remote history of continued ongoing nicotine dependence. RECOMMENDATIONS AND DISCUSSION: In this 53-year-old gentleman who presented with multiple complex medical issues, we will monitor the patient closely, continue the current medications, management and symptomatic treatment. Continue with antiplatelet agents. Continue with Lipitor 80 mg. Prognosis guarded because of multiple complex medical issues. Further recommendations to follow. KAREEN / KARIN: [id number] /
[2019-04-04 06:04] LABS: Basophils % (A) 1 %; Eosinophils # (A) 0.2 k/uL (0-0.7); Eosinophils % (A) 2 %; HCT 40.9 % (39.0-53.0); HGB 13.8 gm/dL (13.0-17.5); Lymphocytes # (A) 1.7 k/uL (1.0-4.8); Lymphocytes % (A) 24 %; MCH 32.4 pg (25.0-35.0); MCHC 33.6 g/dL (31.0-37.0); MCV 96.2 fL (80.0-100.0); Mean Platelet Volume 7.2; Monocytes # (A) 0.4 k/uL (0-1.0); Monocytes % (A) 6 %; Neutrophils # (A) 4.6 k/uL (1.3-7.7); Neutrophils % (A) 65 %; Platelet Count 268 k/uL (150-450); RBC 4.25 m/uL (4.30-5.90); RDW 12.7 % (11.5-15.5)
[2019-04-04 06:13] LABS: African American GFR (CKD) >90 (>60 ml/min/1.73 sqM); Anion Gap 7 mmol/L; Blood Urea Nitrogen 12 mg/dL (9-20); Calcium 9.6 mg/dL (8.4-10.2); Carbon Dioxide 25 mmol/L (22-30); Chloride 106 mmol/L (98-107); Glucose 108 mg/dL (74-99); Non-African American GFR(CKD) >90 (>60 ml/min/1.73 sqM); Potassium 4.2 mmol/L (3.5-5.1); Sodium 138 mmol/L (137-145)
[2019-04-04] MEDS: PANTOPRAZOLE 40 MG TABLET PO SCH (07:16)
[2019-04-04] MEDS: ASPIRIN 81 MG PO SCH (07:51)
[2019-04-04] MEDS: METOPROLOL TARTRATE 12.5 MG TAB PO SCH (07:51)
[2019-04-04] MEDS: PRASUGREL 10 MG TAB PO SCH (07:51)
[2019-04-04] MEDS: LISINOPRIL 2.5 MG TAB PO SCH (07:51)
[2019-04-04] MEDS: NICOTINE 14MG/24HR PATCH TRANSDERM SCH (07:52)
--- NOTE | 2019-04-04 09:45 | P.PN ---
Subjective Progress Note Date: 04/04/19 This is a 53-year-old gentleman with history of ischemic heart disease with previous stent placement was admitted to the hospital with acute inferior wall CT and had stent placement to the distal RCA by Dr. Salgado. These stents in the LAD o and circumflex appear to be patent. Patient is feeling better. Denies any chest pain or shortness of breath. His chest x-ray appeared to be clear. Echo Cardigan showed hypokinesis of the inferior wall with ejection fraction about 45% to 50%. His lungs are clear. Heart is regular. No JVD. No peripheral edema. Only 1 troponin values available. Patient is stable. Patient is being transferred to telemetry unit and increase activity as tolerated. Possible discharge within 24-48 hour. 04/04/2018: This patient is admitted with acute inferior wall myocardial infarction. Patient had stent placement of the distal RCA by Dr. Salgado. Patient has been doing well since last visit. Denies any chest pain or shortness of breath. His lungs are clear. Echo Cardigan showed an ejection fraction of 45-50%. Patient is advised about the importance of quitting smoking and continue with medical therapy and exercising. Patient will be discharged home today. Patient wants to follow with Dr. Salgado Objective - Vital Signs Vital signs: Vital Signs Temp 97.6 F 04/04/19 08:00 Pulse 72 04/04/19 08:00 Resp 13 04/04/19 08:00 BP 110/78 04/04/19 08:00 Pulse Ox 96 04/04/19 04:00 Intake & Output 04/03/19 04/04/19 04/04/19 18:59 06:59 18:59 Intake Total 395 600 350 Output Total 1800 Balance -1405 600 350 Weight 74 kg 74.2 kg Intake: IV 95 Sodium Chloride 0.9% 1, 95 000 ml @ 75 mls/hr IV . [id number] [facility] Rx#:[id number] Oral 300 600 350 Output: Urine 1800 Other: # Voids 1 2 - Exam GENERAL EXAM: Patient is alert and oriented and doesn't appear to be in any acute distress HEENT: Normocephalic. Normal reaction of pupils, equal size, normal range of extraocular motion. No erythema or exudates in the throat. NECK: No masses, no nuchal rigidity. CHEST: No chest wall deformity. LUNGS: Equal air entry with no crackles or wheeze. HEART: S1 and S2 normal with no audible mumurs or gallops. Regular rhythm, femorals equal on both sides.. ABDOMEN: No hepatosplenomegaly, normal bowel sounds, no guarding or rigidity. SKIN: No rashes CENTRAL NERVOUS SYSTEM: No focal deficits. EXTREMITIES: No cyanosis, clubbing or edema. The right radial artery: The puncture site is healing well. Pulses preserved - Labs CBC & Chem 7: 04/04/19 05:37 04/04/19 05:37 Labs: Abnormal Lab Results - Last 24 Hours (Table) 04/04/19 04/04/19 Range/Units 05:37 05:37 RBC 4.25 L (4.30-5.90) m/uL Glucose 108 H (74-99) mg/dL Assessment and Plan (1) ST elevation myocardial infarction (STEMI) Current Visit: Yes Status: Acute Code(s): I21.3 - ST ELEVATION (STEMI) MYOCARDIAL INFARCTION OF [facility] SITE SNOMED Code(s): 27593915 (2) CAD (coronary artery disease) Current Visit: No Status: Acute Code(s): I25.10 - ATHSCL HEART DISEASE OF [place] CORONARY ARTERY W/O ANG PCTRS SNOMED Code(s): 048944371 (3) HTN (hypertension) Current Visit: No Status: Acute Code(s): I10 - ESSENTIAL (PRIMARY) HYPERTENSION SNOMED Code(s): 35673746 (4) Hyperlipidemia Current Visit: No Status: Acute Code(s): E78.5 - HYPERLIPIDEMIA, UNSPECIFIED SNOMED Code(s): 11820766 (5) Nicotine dependence Current Visit: No Status: Acute Code(s): F17.200 - NICOTINE DEPENDENCE, UNSPECIFIED, UNCOMPLICATED SNOMED Code(s): 99550930 Plan: Patient is currently doing well. He is being transferred to telemetry unit. Increase activity as tolerated. Possible discharge within next 24-48 hours. 04/04/2018: This patient is a critically stable. Tolerating activity. He was resumed on his beta blockers and also KATJA inhibitor. He could be discharged home on current medical therapy. Follow up with Dr. Salgado
[2019-04-04 12:01] VITALS: BP 118/84; PULSE 83; RESP 15; TEMP 98
--- NOTE | 2019-04-05 06:16 | DS ---
DISCHARGE SUMMARY DATE OF SERVICE: 04/04/2019. FINAL DIAGNOSES: 1. Acute inferior myocardial infarction status post cardiac catheterization and stenting of the RCA. 2. Congestive heart failure with chronic systolic dysfunction ejection fraction 45 to 50%, possible ischemic nature. 3. History of coronary artery disease/stent. 4. History of fibromyalgia. 5. Gastroesophageal reflux disease. 6. Hypertension. 7. Hyperlipidemia. 8. History of degenerative joint disease. 9. History of sleep apnea. 10.Continued ongoing nicotine dependence discharge. DISCHARGE DISPOSITION: The patient will be discharged in stable condition with guarded prognosis. Total time taken 35 minutes. Cardiology cleared the patient for discharge. HISTORY OF PRESENT ILLNESS: This 53-year-old gentleman with a past medical history of multiple medical problems being followed by Dr. Cristobal Corona in the outpatient was admitted with chest pain. The patient had features of inferior myocardial infarction. Patient treated symptomatically. Claim Professional performed a cardiac cath and stenting of the RCA. The patient improved significantly. On exam, vitals are stable. Cardiovascular system: S1, S2. Abdomen soft. Nervous system: No focal deficits. DISCHARGE ADVICE AND MEDICATIONS: 1. Diet is cardiac diet. 2. Activity limited until followup. 3. Follow up with Dr. Corona in 2-3 days. 4. Follow up with Dr. Alaniz as recommended. DISCHARGE MEDICATIONS: 1. Aspirin 81 mg p.o. daily. 2. Effient 10 mg p.o. daily. 3. Habitrol 14 daily. No smoking. 4. Lipitor 80 mg q.h.s. 5. Lopressor 12.5 mg p.o. b.i.d. 6. Nitrostat 0.4 sublingually p.r.n. 7. Protonix 40 mg b.i.d. 8. Tylenol 500 mg p.o. q.6h p.r.n. 9. Zestril 2.5 mg daily. Once again the patient will be discharged in stable condition with guarded prognosis. MMODL / IJN: [id number] /
== END 2019-04-04 17:49 | disposition home or self-care (01) | DRG 247 ==
LOC: EC 17:48 → 2SICU 18:20
PROVIDERS: ADMIT Hospitalist; ATTEND Hospitalist
PROC: 4A023N7 Measurement of Cardiac Sampling and Pressure, Left Heart, Percutaneous Approach (ICD-10-PCS; 2019-04-02)
PROC: B2111ZZ Fluoroscopy of Multiple Coronary Arteries using Low Osmolar Contrast (ICD-10-PCS; 2019-04-02)
PROC: 027034Z Dilation of Coronary Artery, One Artery with Drug-eluting Intraluminal Device, Percutaneous Approach (ICD-10-PCS; principal; 2019-04-02 17:50)
PROC: 02C03ZZ Extirpation of Matter from Coronary Artery, One Artery, Percutaneous Approach (ICD-10-PCS; 2019-04-02 17:50)
DX: I21.19 ST elevation (STEMI) myocardial infarction involving other coronary artery of inferior wall (principal); I50.22 Chronic systolic (congestive) heart failure; I11.0 Hypertensive heart disease with heart failure; I95.9 Hypotension, unspecified; E78.5 Hyperlipidemia, unspecified; F17.200 Nicotine dependence, unspecified, uncomplicated; I25.10 Atherosclerotic heart disease of native coronary artery without angina pectoris; I25.2 Old myocardial infarction; K21.9 Gastro-esophageal reflux disease without esophagitis; M79.7 Fibromyalgia; G47.30 Sleep apnea, unspecified; M19.90 Unspecified osteoarthritis, unspecified site; R00.1 Bradycardia, unspecified; Z71.6 Tobacco abuse counseling; Z79.82 Long term (current) use of aspirin; Z79.899 Other long term (current) drug therapy; Z95.5 Presence of coronary angioplasty implant and graft; Z88.5 Allergy status to narcotic agent
CPT/HCPCS: 36415; 71045; 80048; 80053; 80061; 82550; 82553; 83735; 84100; 84484; 85025; 85027; 85610; 85730; 93306; 93458; 96374; 99285; C1874

== ENCOUNTER → 2019-04-10 | Outpatient (CLI) | payer BC ==
[2019-04-10 15:16] LABS: HCT 43.8 % (39.0-53.0); HGB 14.5 gm/dL (13.0-17.5); MCH 32.1 pg (25.0-35.0); MCHC 33.1 g/dL (31.0-37.0); Mean Platelet Volume 7.2; Platelet Count 329 k/uL (150-450); RBC 4.51 m/uL (4.30-5.90); RDW 12.4 % (11.5-15.5); WBC 7.3 k/uL (3.8-10.6)
[2019-04-10 18:50] LABS: African American GFR (CKD) 97.8 (60.0-200.0); Anion Gap 5.8 mmol/L (4.00-12.00); Calcium 9.9 mg/dL (8.7-10.3); Carbon Dioxide 28.2 mmol/L (21.6-31.8); Non-African American GFR(CKD) 84.4 (60.0-200.0); Potassium 4.3 mmol/L (3.5-5.5)
== END | disposition home or self-care (01) ==
LOC: LABWHC1 14:10
PROVIDERS: ATTEND Hospitalist
DX: I21.19 ST elevation (STEMI) myocardial infarction involving other coronary artery of inferior wall (principal)
CPT/HCPCS: 36415; 80048; 85027

== ENCOUNTER → 2021-06-07 | Outpatient (CLI) | payer BC ==
[2021-06-07 10:47] LABS: ALT 28 U/L (10-49); AST 25 U/L (14-35); Chol/HDL Ratio 3.51 Ratio; LDL Cholesterol,Calculated 105.4 mg/dL (0.0-131.0); VLDL Calculation 16.92 mg/dL (5.00-40.00)
== END | disposition home or self-care (01) ==
LOC: LABWHC1 07:03
PROVIDERS: ATTEND Internal Medicine Interventional Cardiology
DX: E78.2 Mixed hyperlipidemia (principal)
CPT/HCPCS: 36415; 80061; 84450; 84460

== ENCOUNTER → 2021-06-20 | Outpatient (CLI) | payer BC ==
[2021-06-20 18:17] LABS: HCT 42.6 % (39.6-50.0); HGB 13.7 g/dL (13.0-17.0); MCHC 32.2 g/dL (32.0-37.0); MCV 96.4 fL (80.0-97.0); Mean Platelet Volume 9.3 fL (9.5-12.2); NRBC Per 100 WBC 0 /100 WBCS (0.0-0.0); Platelet Count 269 X 10*3/uL (140-440); RBC 4.42 X 10*6/uL (4.40-5.60); RDW 12.8 % (11.5-14.5); WBC 7.44 X 10*3/uL (4.50-10.00)
[2021-06-20 18:31] LABS: African American GFR (CKD) 105.5 (60.0-200.0); Anion Gap 12.3 mmol/L (10.00-18.00); Blood Urea Nitrogen 12.7 mg/dL (9.0-27.0); Carbon Dioxide 24.5 mmol/L (20.0-27.5); Potassium 3.6 mmol/L (3.5-5.5)
== END | disposition home or self-care (01) ==
LOC: LABPAT 14:07
PROVIDERS: ATTEND Internal Medicine Interventional Cardiology
DX: Z01.812 Encounter for preprocedural laboratory examination (principal); I25.5 Ischemic cardiomyopathy
CPT/HCPCS: 36415; 80051; 82565; 84520; 85027

== ENCOUNTER 2021-06-23 06:35 | Day surgery (SDC) | payer BC ==
[2021-06-21 10:14] VITALS: BMI 25.8
[2021-06-23] MEDS ORDERED: HEPARIN SODIUM,PORCINE 10,000 UNIT in SODIUM CHLORIDE 0.9% 1,000 ML IRRIGATION PRN (06:37)
[2021-06-23] MEDS ORDERED: ALPRAZolam 0.5 MG TAB PO PRN (06:37)
[2021-06-23] MEDS ORDERED: ASPIRIN 325 MG TAB PO STA (06:37)
[2021-06-23] MEDS ORDERED: NITROGLYCERIN SL TABS 0.4 MG TAB SUBLINGUAL PRN (06:37)
[2021-06-23] MEDS ORDERED: ATORVASTATIN 80 MG TAB PO STA (06:37)
[2021-06-23] MEDS ORDERED: HEPARIN SODIUM,PORCINE 2,500 UNIT in SODIUM CHLORIDE 0.9% 250 ML IRRIGATION PRN (06:37)
[2021-06-23] MEDS ORDERED: ALPRAZolam 0.25 MG TAB PO PRN (06:37)
[2021-06-23] MEDS ORDERED: SODIUM CHLORIDE 0.9% 1,000 ML in EMPTY BAG 1 BAG IV SCH (06:37)
[2021-06-23] MEDS ORDERED: ASPIRIN 81 MG ONE (06:51)
[2021-06-23 07:06] VITALS: RESP 16; TEMP 97
[2021-06-23] MEDS ORDERED: VERAPAMIL 2.5 MG/ML 2 ML AMP ONE (07:12)
[2021-06-23] MEDS ORDERED: LIDOCAINE 1% INJ 10MG/ML (20 ML MDV) ONE (07:12)
[2021-06-23] MEDS ORDERED: HEPARIN SODIUM 1,000 UN/ML (10ML VL) ONE (07:16)
[2021-06-23] MEDS ORDERED: MIDAZOLAM 2 MG/2 ML VIAL IVP ONE (07:40)
[2021-06-23] MEDS ORDERED: LIDOCAINE 1% INJ 10MG/ML (20 ML MDV) SQ ONE (07:42)
[2021-06-23] MEDS: VERAPAMIL SYRINGE (5 MG/10 ML) INTRAARTER ONE ×2 (07:43→07:52)
[2021-06-23] MEDS ORDERED: HEPARIN SODIUM 1,000 UN/ML (10ML VL) IV ONE (07:46)
[2021-06-23] MEDS ORDERED: IOPAMIDOL-370 125ML BTL INJ ONE (07:52)
[2021-06-23] MEDS ORDERED: RX INFO: IV CONTRAST WAS GIVEN 1 EACH MISC MISCELLANE PRN (07:56)
[2021-06-23] MEDS ORDERED: SODIUM CHLORIDE 0.9% 1,000 ML IV SCH (08:00)
--- NOTE | 2021-06-23 08:02 | P.PCN ---
Date of Procedure: 06/23/21 Operative Findings: CARDIAC CATHETERIZATION PERFORMING PHYSICIAN: Greg Alaniz MD, RPVI PROCEDURE PERFORMED: 1. Selective right and left coronary angiogram 2. Left heart catheterization INDICATION: Chest discomfort and this 55-year-old gentleman who is known to have CAD with prior stenting of the RCA and LCx who underwent myocardial perfusion imaging stress test and that revealed an inferior fixed defect and anterior reversibility. COMPLICATION: None APPROACH: Right radial artery LEVEL OF SEDATION: Moderate with a sedation length of 12 PROCEDURE DESCRIPTION: After obtaining an informed consent, the patient was brought to cardiac microbiological laboratory technician. Local anesthesia was performed using lidocaine subcutaneously. The right radial artery was cannulated using Seldinger technique, the guidewire passed easily, following that we advanced a 5-[place]otswan[place] sheath dilator assembly, the wire and dilator were removed and sheath was flushed. Following that, 2 mg of verapamil along with 5000 unit heparin were given. Selective right and left coronary angiogram using a 6-[place]otswan[place] JR4 and JL 3.5 catheters. Following that we did left heart catheterization using 6-[place] pigtail catheter. The procedure was completed there was no complication. SELECTIVE CORONARY ANGIOGRAM: The right coronary artery: Is a large caliber vessel and a dominant vessel. The proximal RCA appeared to have mild disease only. The mid RCA stented and the stent is patent. The RCA distally is a stented and the stent is patent. The RCA after that bifurcates into PDA and PLV branches both appear to have mild disease only. Left main: Is angiographically normal. Bifurcates into left circumflex and left anterior descending artery The left circumflex: Is a large caliber vessel. The proximal left circumflex is angiographically normal. Gives rise into the first obtuse marginal branch which bifurcates into 2 subbranches. Both appear to have mild disease only. The circumflex continue after that as a small to medium caliber vessel in the AV groove The left anterior descending artery: Is a large caliber vessel. The proximal LAD appeared to be angiographically normal. Gives rises into a large diagonal branch which appeared to have mild disease only. The mid LAD and distal LAD are angiographically normal. HEMODYNAMICS: The LVEDP appears to be 10-12 mmHg without significant gradient across aortic valve CONCLUSION: 1. Patent stents in the right coronary artery 2. Patent stent in the LCx 3. Mild disease involving the left anterior descending artery POSTPROCEDURE MANAGEMENT: Medical treatment and follow-up with the patient
[2021-06-23 09:35] VITALS: BP 124/69; PULSE 70
== END 2021-06-23 11:23 | disposition home or self-care (01) ==
LOC: CATHCVL 06:35
PROVIDERS: ATTEND Internal Medicine Interventional Cardiology
DX: I25.10 Atherosclerotic heart disease of native coronary artery without angina pectoris (principal); Z95.5 Presence of coronary angioplasty implant and graft; I10 Essential (primary) hypertension; Z79.82 Long term (current) use of aspirin; Z79.899 Other long term (current) drug therapy; F17.210 Nicotine dependence, cigarettes, uncomplicated; Z88.5 Allergy status to narcotic agent; Z20.822 Contact with and (suspected) exposure to COVID-19
CPT/HCPCS: 93458; 87635; C1894; J2250; J2001; J1644; Q9967

== ENCOUNTER → 2023-08-09 | Outpatient (CLI) | payer BC ==
[2023-08-09 11:07] LABS: ALT 38 U/L (10-49); AST 26 U/L (14-35); Chol/HDL Ratio 2.38 Ratio; LDL Cholesterol,Calculated 49.7 mg/dL (0.0-131.0); VLDL Calculation 17.54 mg/dL (5.00-40.00)
== END | disposition home or self-care (01) ==
LOC: LABWHC1 06:52
PROVIDERS: ATTEND Internal Medicine Interventional Cardiology
DX: E78.2 Mixed hyperlipidemia (principal)
CPT/HCPCS: 36415; 80061; 84450; 84460